=== PATIENT | female | born 1970 ===

== ENCOUNTER 2018-02-14 08:05 | Emergency (ER) | payer OTHER, SELFPAY ==
[2018-02-14 08:20] VITALS: RESP 19; O2SAT 98
[2018-02-14] MEDS ORDERED: Naproxen 500 MG TAB PO ONE (08:28)
--- NOTE | 2018-02-14 08:30 | ED PDOC ---
HPI: Influenza Time Seen by Provider: 02/14/18 08:23 Chief Complaint: Flu-like Symptoms Chief Complaint (Provider): Flu-like Symptoms History Per: Patient Exam Limitations: no limitations Onset/Duration Of Symptoms: Days (x 3) Additional complaint(s):: Christine is a 47 y/o female who presents to the ED complaining of cough, fever, body aches, and chills since Monday. She also complains of some shortness of breath, headache, and sore throat. Patient denies any other complaints at this time. She did not get the flu shot. PMD: Clinic Past Medical History Reviewed: Historical Data, Nursing Documentation, Vital Signs Vital Signs: Last Vital Signs Temp 101.2 F H 02/14/18 08:17 Pulse 84 02/14/18 08:17 Resp 19 02/14/18 08:17 BP 126/82 02/14/18 08:21 Pulse Ox 98 02/14/18 08:17 - Medical History PMH: Hypothyroidism - Surgical History Surgical History: No Surg Hx - Family History Family History: States: Unknown Family Hx - Immunization History Hx Tetanus Toxoid Vaccination: No Hx Influenza Vaccination: No Hx Pneumococcal Vaccination: No - Home Medications Home Medications: Ambulatory Orders Medication Instructions Recorded Aspirin 81 mg PO DAILY 04/08/15 Prednisone 60 mg PO DAILY #15 tab 04/08/15 Valacyclovir Hydrochloride 1 gm PO BID #14 tab 04/08/15 [Valtrex] oxyCODONE/Acetaminophen [Percocet 2 tab PO TID #30 tab 04/08/15 5/325 mg Tab] Cyclobenzaprine [Cyclobenzaprine 10 mg PO Q8 PRN #9 tab 07/20/16 HCl] Ibuprofen [Motrin] 600 mg PO TID PRN #30 tab 07/20/16 traMADol [Ultram] 50 mg PO Q8 PRN #12 tab 07/20/16 Naproxen [Naprosyn] 500 mg PO BID PRN #20 tablet 02/14/18 Promethazine DM [Phenergan DM 10 ml PO Q8H PRN #120 ml 02/14/18 Syrup] - Allergies Allergies/Adverse Reactions: Allergies Allergy/AdvReac Type Severity Reaction Status Date / Time No Known Allergies Allergy Unverified 04/08/15 09:35 Review of Systems ROS Statement: Except As Marked, All Systems Reviewed And Found Negative Constitutional: Positive for: Fever, Chills, Malaise ENT: Positive for: Throat Pain Respiratory: Positive for: Cough, Shortness of Breath Gastrointestinal: Negative for: Nausea, Vomiting, Abdominal Pain Genitourinary Female: Negative for: Dysuria Neurological: Positive for: Headache Physical Exam - Reviewed Nursing Documentation Reviewed: Yes Vital Signs Reviewed: Yes - Physical Exam Appears: Positive for: Uncomfortable Head Exam: Positive for: ATRAUMATIC, NORMAL INSPECTION, NORMOCEPHALIC Skin: Positive for: Normal Color, Warm, Dry ENT: Positive for: Normal ENT Inspection Neck: Positive for: Normal, Painless ROM, Supple Cardiovascular/Chest: Positive for: Regular Rate, Rhythm. Negative for: Murmur Respiratory: Positive for: Normal Breath Sounds. Negative for: Respiratory Distress Gastrointestinal/Abdominal: Positive for: Normal Exam, Soft. Negative for: Tenderness Lymphatic: Positive for: Other (no palpable lymph nodes but tender to palpation) Neurologic/Psych: Positive for: Alert, Oriented Medical Decision Making Medical Decision Making: Time: 8:28 Initial Impression: Flu-like illness Initial Plan: --Flu Swab --Naproxen Scribe Attestation: Documented by Samuel Cadena, acting as a scribe for Dr. Sofia Calle MD. Provider Scribe Attestation: All medical record entries made by the Scribe were at my direction and personally dictated by me. I have reviewed the chart and agree that the record accurately reflects my personal performance of the history, physical exam, medical decision making, and the department course for this patient. I have also personally directed, reviewed, and agree with the discharge instructions and disposition. - ECG O2 Sat by Pulse Oximetry: 98 (RA) Pulse Ox Interpretation: Normal Disposition - Clinical Impression Clinical Impression: Influenza-like symptoms - Patient ED Disposition Is Patient to be Admitted: No Doctor Will See Patient In The: Office Counseled Patient/Family Regarding: Diagnosis, Need For Followup, Rx Given - Disposition Referrals: at [facility] [Outside] Disposition: Routine/Home Disposition Time: 09:11 Condition: STABLE Prescriptions: Naproxen [Naprosyn] 500 mg PO BID PRN #20 tablet PRN Reason: Pain, Moderate (4-7) Promethazine DM [Phenergan DM Syrup] 10 ml PO Q8H PRN #120 ml PRN Reason: Cough Instructions: Viral Upper Respiratory Infection, Adult (DC) Forms: [employer] ([place]) [employer] (Congolese), [facility] ED School/Work Excuse Print Language: HAITIAN - POA Present On Arrival: None
[2018-02-14 09:20] VITALS: TEMP 100.4
[2018-02-14 09:28] VITALS: BP 128/76; PULSE 78
== END 2018-02-14 09:28 | disposition home or self-care (01) ==
LOC: H.ER 08:05
DX: J11.1 Influenza due to unidentified influenza virus with other respiratory manifestations (principal)

== ENCOUNTER 2018-02-25 19:34 | Emergency (ER) | payer OTHER ==
[2018-02-25 20:28] VITALS: RESP 18
[2018-02-25] MEDS ORDERED: Morphine 4 MG/ML VIAL IVP STA (21:11)
[2018-02-25] MEDS ORDERED: Tdap Vaccine 0.5 ml Vial (10-64 yrs) IM ONE ×2 (21:12→21:27)
--- NOTE | 2018-02-25 21:12 | ED PDOC ---
Lower Extremity Pain/Injury Time Seen by Provider: 02/25/18 20:47 Chief Complaint (Nursing): Lower Extremity Problem/Injury Chief Complaint (Provider): Lower Extremity Problem/Injury History Per: Patient History/Exam Limitations: no limitations Onset/Duration Of Symptoms: Days (x2) Current Symptoms Are (Timing): Still Present Additional Complaint(s): 47 y/o female with a history of diabetes and varicose veins presents to the ED complaining of left lower extremity pain that began 2 days ago. She is complaining of swelling and redness to the left medial knee. Patient denies any trauma or injury to the left leg, fever, numbness, weakness, SOB, chest pain. PMD:Dr. Yin Ramos MD Past Medical History Reviewed: Historical Data, Nursing Documentation, Vital Signs Vital Signs: Last Vital Signs Temp 97.8 F 02/25/18 20:21 Pulse 74 02/25/18 20:21 Resp 18 02/25/18 20:21 BP 117/80 02/25/18 20:21 Pulse Ox 98 02/25/18 20:21 - Medical History PMH: Diabetes, Hypothyroidism - Surgical History Surgical History: No Surg Hx - Family History Family History: States: Unknown Family Hx - Social History Current smoker - smoking cessation education provided: No Ex-Smoker (has not smoked in the last 12 months): No Alcohol: None Drugs: Denies - Immunization History Hx Tetanus Toxoid Vaccination: No Hx Influenza Vaccination: No Hx Pneumococcal Vaccination: No - Home Medications Home Medications: Ambulatory Orders Medication Instructions Recorded Aspirin 81 mg PO DAILY 04/08/15 Prednisone 60 mg PO DAILY #15 tab 04/08/15 Valacyclovir Hydrochloride 1 gm PO BID #14 tab 04/08/15 [Valtrex] oxyCODONE/Acetaminophen [Percocet 2 tab PO TID #30 tab 04/08/15 5/325 mg Tab] Cyclobenzaprine [Cyclobenzaprine 10 mg PO Q8 PRN #9 tab 07/20/16 HCl] Ibuprofen [Motrin] 600 mg PO TID PRN #30 tab 07/20/16 traMADol [Ultram] 50 mg PO Q8 PRN #12 tab 07/20/16 Naproxen [Naprosyn] 500 mg PO BID PRN #20 tablet 02/14/18 Promethazine DM [Phenergan DM 10 ml PO Q8H PRN #120 ml 03/21/18 Syrup] Cephalexin [Keflex] 500 mg PO Q6 #28 capsule 02/26/18 Naproxen 500 mg PO BID PRN #20 tablet 02/26/18 - Allergies Allergies/Adverse Reactions: Allergies Allergy/AdvReac Type Severity Reaction Status Date / Time No Known Allergies Allergy Verified 02/25/18 20:21 Review of Systems ROS Statement: Except As Marked, All Systems Reviewed And Found Negative Constitutional: Negative for: Fever Cardiovascular: Negative for: Chest Pain Respiratory: Negative for: Shortness of Breath Musculoskeletal: Positive for: Leg Pain (left leg and swelling) Skin: Positive for: Other (redness to left medial knee and vericose veins) Neurological: Negative for: Weakness, Numbness Physical Exam - Reviewed Nursing Documentation Reviewed: Yes Vital Signs Reviewed: Yes - Physical Exam Comments: GENERAL APPEARANCE: Patient is awake, alert, oriented x 3, in mild painful distress. SKIN: Warm, dry; (-) cyanosis. EYES: (-) conjunctival pallor. ENMT: Mucous membranes moist. NECK: (-) tenderness, (-) stiffness, (-) lymphadenopathy, (-) JVD. CHEST AND RESPIRATORY: (-) rash, (-) chest wall tenderness. Lungs: (-) rales , (-) rhonchi, (-) wheezes, (-) rub; breath sounds equal bilaterally. HEART AND CARDIOVASCULAR: (-) irregularity; (-) murmur, (-) gallop, (-) rub. ABDOMEN AND GI: Soft; (-) distention, (-) tenderness, (-) palpable pulsatile mass. EXTREMITIES: (+) 7 x5 cm area of erythema, edema and tenderness to the medial aspect of the L knee with noted tender varicose veins, (-) deformity; (-) calf tenderness, (+) distal pulses (+) multiple varicose veins to the L leg, (+) cap refill < 2 sec. NEURO AND PSYCH: Mental status as above. Cranial nerves grossly intact; strength symmetric. - Laboratory Results Result Diagrams: 02/25/18 21:25 02/25/18 21:25 - ECG O2 Sat by Pulse Oximetry: 98 (RA) Pulse Ox Interpretation: Normal Medical Decision Making Medical Decision Making: Time: 20:21 Impression: Superficial phlebitis, consider cellulitis, rule out DVT. Initial Plan: * Morphine 4 mg IVP * Zofran 4 mg PO * Tetanus 0.5 ml IM * Ultrasound of the LE Labs reviewed and are wnl. US duplex LLE : FINDINGS: Deep veins: Unremarkable. No DVT in the visualized common femoral, femoral, proximal deep femoral or popliteal veins. The veins demonstrate normal color flow, are normally compressible, with normal phasic flow and/or augmentation response. Superficial veins: In the area of clinical concern in the medial knee there are thrombosed superficial varicose veins. There is no flow through these veins. Soft tissues: No acute findings. No popliteal cyst. IMPRESSION: There is no DVT. There are thrombosed superficial varicose veins in the medial knee at the area of clinical concern. Dictated and Authenticated by: Prisca Valadez MD 02/25/2018 11:25 PM Eastern Time ([place] & [place]) On re-evaluation, patient reports improvement of pain, denies any fever, chills , numbness. On exam, patient remains AAOx3, in no acute distress. Exam of the LLE is unchanged from initial exam. Ancef 1 g IV ordered. Diagnostic results d/w the patient in great detail. Diagnosis of superficial phlebitis d/w the patient. Based on history, exam and diagnostic results, plan will be for outpatient follow up. Patient instructed to follow-up with pmd at the clinic in 1-2 days without fail. Advised to take medication as prescribed. Advised to elevate the L leg, apply warm compresses and otc aspirin for pain. Return to the emergency room at any time for any new or worsening symptoms. Patient states she fully agrees with and understands discharge instructions. States that she agrees with the plan and disposition. Verbalized and repeated discharge instructions and plan. I have given the patient opportunity to ask any additional questions. Scribe Attestation: Documented by Emily Hull acting as a scribe for Preethi Acevedo PA-C. Scribpawan Attestation: All medical record entries made by the Scribe were at my direction and personally dictated by me. I have reviewed the chart and agree that the record accurately reflects my personal performance of the history, physical exam, medical decision making, and the department course for this patient. I have also personally directed, reviewed, and agree with the discharge instructions and disposition. Disposition - Clinical Impression Clinical Impression: Superficial phlebitis - Patient ED Disposition Is Patient to be Admitted: No Counseled Patient/Family Regarding: Studies Performed, Diagnosis, Need For Followup, Rx Given - Disposition Disposition: Routine/Home Disposition Time: 00:45 Condition: STABLE Additional Instructions: Thank you for letting us take care of you today. You were treated for superficial phlebitis. The emergency medical care you received today was directed at your acute symptoms. If you were prescribed any medication, please fill it and take as directed. It may take several days for your symptoms to resolve. Return to the Emergency Department if your symptoms worsen, do not improve, or if you have any other problems. Please contact your doctor in 2 days for re-evaluation and follow up. Bring any paperwork you were given at discharge with you along with any medications you are taking to your follow up visit. Our treatment cannot replace ongoing medical care by a primary care provider (PCP) outside of the emergency department. Thank you for allowing the [facility] team to be part of your care today. Prescriptions: Cephalexin [Keflex] 500 mg PO Q6 #28 capsule Naproxen 500 mg PO BID PRN #20 tablet PRN Reason: Pain, Moderate (4-7) Instructions: Superficial Phlebitis Forms: [employer] (Citizen Of [place]), [facility] ED School/Work Excuse Print Language: ERITREAN - PA / PROGRAM TECHNICIAN / Resident Statement / has reviewed & agrees with the documentation as recorded.
[2018-02-25] MEDS ORDERED: Morphine 4 MG/ML VIAL ONE (21:28)
[2018-02-25 21:34] LABS: BASO # 0.1 K/uL (0.0-0.2); EOS # 0.3 K/uL (0.0-0.7); HEMOGLOBIN 12.9 g/dL (12.0-16.0); LYMPH # 2.8 K/uL (1.0-4.3); LYMPH % 37.5 % (20.0-40.0); MEAN CORPUSCULAR HEMOGLOBIN 27.8 pg (27.0-31.0); MEAN CORPUSCULAR HGB CONC 33.6 g/dL (33.0-37.0); MEAN PLATELET VOLUME 8.6 fl (7.2-11.7); MONO % 13.7 % (0.0-10.0); NEUT # 3.3 K/uL (1.8-7.0); NEUT % 43.8 % (50.0-75.0); NRBC % 0.1 % (0.0-0.0); RBC 4.63 Mil/uL (3.80-5.20); RED CELL DISTRIBUTION WIDTH 14.7 % (11.5-14.5); WHITE BLOOD COUNT 7.5 K/uL (4.8-10.8)
[2018-02-25 21:45] LABS: MEAN CELL VOLUME 82.6 fl (81.0-99.0)
[2018-02-25 21:46] LABS: ALBUMIN 4.1 g/dL (3.5-5.0); ALT/SGPT 48 U/L (9-52); AST/SGOT 43 U/L (14-36); BLOOD UREA NITROGEN 20 mg/dl (7-17); CALCIUM 8.7 mg/dL (8.4-10.2); GFR AFRICAN-AMERICAN > 60; GFR NON-AFRICAN AMERICAN > 60; INR 1.1 (0.9-1.2); PROTHROMBIN TIME 11.7 Seconds (9.8-13.1)
[2018-02-26] MEDS ORDERED: ceFAZolin 1 GM in Sodium Chloride 0.9% 100 ML IVPB STA (00:15)
[2018-02-26 02:23] VITALS: BP 106/61; PULSE 67; TEMP 97.7
[2018-02-26 03:57] VITALS: O2SAT 98
--- NOTE | 2018-02-26 11:57 | US ---
HISTORY: redness, pain to the medial L knee . PRIORS: None. FINDINGS: 2-D, color and duplex Doppler analysis of the lower extremity venous circulation using routine protocol from the femoral veins through the popliteal veins. Venous compressibility: Normal. Flow and augmentation patterns: Normal. Visualized veins upper third of calf: Normal. Moody cyst: None. Incidental finding(s): Noncompressible superficial venous varicosities area of interest. IMPRESSION: No sonographic or Doppler evidence for DVT in left lower extremity. Evidence of large, noncompressible superficial venous thrombosis area of interest, venous varicosities. Concordant results (preliminary interpretation) provided by [facility]. Procedure Completed: 23:09 Preliminary ([facility]) Report: Dictated and Authenticated: 19:25 Final Interpretation: 11:55 February 26, 2018.
== END 2018-02-26 02:28 | disposition home or self-care (01) ==
LOC: H.ER 19:34
DX: I80.01 Phlebitis and thrombophlebitis of superficial vessels of right lower extremity (principal); E03.9 Hypothyroidism, unspecified; E11.9 Type 2 diabetes mellitus without complications; Z79.82 Long term (current) use of aspirin; Z87.891 Personal history of nicotine dependence
CPT/HCPCS: 80053; 85025; 85610; 85730; 90471; 90715; 93971; 96365; 96374; 99285; J0690; J2270

== ENCOUNTER 2018-12-14 08:39 | Emergency (ER) | payer SELFPAY ==
[2018-12-14 08:55] VITALS: BMI 43.7
[2018-12-14] MEDS ORDERED: Sodium Chloride 0.9% 1,000 ML IV STA (09:29)
--- NOTE | 2018-12-14 10:07 | ED PDOC ---
History of Present Illness History of Present Illness: 48 year old female with a history of diabetes and obesity presents to the ED with body aches, fever, and cough for three days. Patient reports two flu- positive grandchildren at home. She did not receive the influenza vaccine this year. Patient does not offer other medical complaints. PMD: Dr. Yin Ramos HPI: Influenza Time Seen by Provider: 12/14/18 09:11 Chief Complaint: Flu-like Symptoms Chief Complaint (Provider): Flu-like Symptoms History Per: Patient, Senior Benefits Specialist (lindy arellano) Exam Limitations: no limitations Onset/Duration Of Symptoms: Days (x 3) Symptoms include: fever, bodyaches, cough. denies: rash Sick Contacts (Context): Family Member(s) (two grandchildren flu +) Risk factors for flu complications: Yes: obesity (BMI > 40) Past Medical History Reviewed: Historical Data, Nursing Documentation, Vital Signs Vital Signs: Last Vital Signs Temp 101.1 F H 12/14/18 08:54 Pulse 91 H 12/14/18 08:54 Resp 20 12/14/18 08:54 BP 115/72 12/14/18 08:54 Pulse Ox 97 12/14/18 08:54 - Medical History PMH: Diabetes, Hypothyroidism Denies: Chronic Kidney Disease - Surgical History Surgical History: No Surg Hx - Family History Family History: States: Unknown Family Hx - Immunization History Hx Tetanus Toxoid Vaccination: No Hx Influenza Vaccination: No Hx Pneumococcal Vaccination: No - Home Medications Home Medications: Ambulatory Orders Medication Instructions Recorded Aspirin 81 mg PO DAILY 04/08/15 Prednisone 60 mg PO DAILY #15 tab 04/08/15 Valacyclovir Hydrochloride 1 gm PO BID #14 tab 04/08/15 [Valtrex] oxyCODONE/Acetaminophen [Percocet 2 tab PO TID #30 tab 04/08/15 5/325 mg Tab] Cyclobenzaprine [Cyclobenzaprine 10 mg PO Q8 PRN #9 tab 07/20/16 HCl] Ibuprofen [Motrin] 600 mg PO TID PRN #30 tab 07/20/16 traMADol [Ultram] 50 mg PO Q8 PRN #12 tab 07/20/16 Naproxen [Naprosyn] 500 mg PO BID PRN #20 tablet 02/14/18 Promethazine DM [Phenergan DM 10 ml PO Q8H PRN #120 ml 02/14/18 Syrup] Cephalexin [Keflex] 500 mg PO Q6 #28 capsule 02/26/18 Naproxen 500 mg PO BID PRN #20 tablet 02/26/18 Ibuprofen [Motrin Tab] 600 mg PO Q6 PRN #15 tab 12/14/18 Oseltamivir Cap [Tamiflu] 75 mg PO BID #10 cap 12/14/18 guaiFENesin [guaifENESIN] 10 ml PO Q4 PRN #250 ml 12/14/18 - Allergies Allergies/Adverse Reactions: Allergies Allergy/AdvReac Type Severity Reaction Status Date / Time No Known Allergies Allergy Verified 02/25/18 20:21 Review of Systems ROS Statement: Except As Marked, All Systems Reviewed And Found Negative Constitutional: Positive for: Fever, Other (generalized body aches). Negative for: Chills Respiratory: Positive for: Cough Gastrointestinal: Negative for: Nausea, Vomiting Skin: Negative for: Rash Physical Exam - Reviewed Nursing Documentation Reviewed: Yes Vital Signs Reviewed: Yes - Physical Exam Appears: Positive for: Uncomfortable Head Exam: Positive for: ATRAUMATIC, NORMAL INSPECTION, NORMOCEPHALIC Skin: Positive for: Normal Color, Warm, Dry. Negative for: Rash Eye Exam: Positive for: EOMI, Normal appearance, PERRL ENT: Positive for: Normal ENT Inspection Neck: Positive for: Normal, Painless ROM, Supple ((-) nuchal rigidity) Cardiovascular/Chest: Positive for: Regular Rate, Rhythm. Negative for: Murmur Respiratory: Positive for: Normal Breath Sounds, Other ((+) cough on exam) Gastrointestinal/Abdominal: Positive for: Normal Exam, Soft. Negative for: Tenderness Extremity: Positive for: Normal ROM (x 4). Negative for: Deformity Neurologic/Psych: Positive for: Alert, Oriented (x 3). Negative for: Motor/Sensory Deficits Medical Decision Making Medical Decision Makin:27 MDM: Will treat patient empirically for the flu with fluids, CXR and basic labs Orders: --EKG --BNP --CMP --CBC --Total CK --CBC --CXR --Motrin 600 mg PO --NS IV 1,000 mls --Tamiflu 75 mg PO --UA labs reviewed no clinically significant findings empiric tamiflu initiated given risk factors CXR neg EKG sinus rhythm without ST changes on my read Improved over ED stay, ambulatory. DC to followup clinic/PMDm supportive care and tamiflu Rxs provided Scribe Attestation: Documented by Blanca Anderson acting as a scribe for Mike Hamilton III, DO Provider Scribe Attestation: All medical record entries made by the Scribe were at my direction and personally dictated by me. I have reviewed the chart and agree that the record accurately reflects my personal performance of the history, physical exam, m edical decision making, and the department course for this patient. I have also personally directed, reviewed, and agree with the discharge instructions and disposition. - Laboratory Results Result Diagrams: 12/14/18 09:52 12/14/18 09:52 - ECG O2 Sat by Pulse Oximetry: 97 Disposition - Clinical Impression Clinical Impression: Influenza - Patient ED Disposition Is Patient to be Admitted: No Counseled Patient/Family Regarding: Studies Performed, Diagnosis, Need For Followup, Rx Given - Disposition Referrals: [facility] [Outside] Disposition: Routine/Home Disposition Time: 13:30 Condition: STABLE Additional Instructions: You are contagious for 7 days from onset of symptoms. Avoid close contact with others. Drink plenty of fluids. Take tamiflu 2x daily as directed. Return to ER for any worse or new symptoms. Prescriptions: guaiFENesin [guaifENESIN] 10 ml PO Q4 PRN #250 ml PRN Reason: Cough Ibuprofen [Motrin Tab] 600 mg PO Q6 PRN #15 tab PRN Reason: Pain, Moderate (4-7) Oseltamivir Cap [Tamiflu] 75 mg PO BID #10 cap Instructions: Flu, Adult (DC) Forms: [employer] (French) Print Language: CONGOLESE
[2018-12-14 10:13] LABS: BASO % 0.5 % (0.0-2.0); EOS % 0.1 % (0.0-4.0); HEMOGLOBIN 13.8 g/dL (12.0-16.0); LYMPH % 18.9 % (20.0-40.0); MEAN CELL VOLUME 81.3 fl (81.0-99.0); MEAN CORPUSCULAR HEMOGLOBIN 27.1 pg (27.0-31.0); MEAN CORPUSCULAR HGB CONC 33.3 g/dL (33.0-37.0); MEAN PLATELET VOLUME 8.9 fl (7.2-11.7); MONO # 0.6 K/uL (0.0-0.8); MONO % 11.5 % (0.0-10.0); NEUT # 3.8 K/uL (1.8-7.0); RBC 5.1 Mil/uL (3.80-5.20); RED CELL DISTRIBUTION WIDTH 15.5 % (11.5-14.5); WHITE BLOOD COUNT 5.5 K/uL (4.8-10.8)
[2018-12-14 10:41] LABS: SQUAMOUS EPITHIAL 1 /hpf (0-5); URINE BACTERIA RARE (<OCC); URINE BILIRUBIN NEGATIVE (NEGATIVE); URINE BLOOD NEGATIVE (NEGATIVE); URINE CLARITY SLIGHTY-CLOUDY (Clear); URINE COLOR YELLOW (YELLOW); URINE GLUCOSE (UA) NEG (NEGATIVE); URINE LEUKOCYTE ESTERASE NEG Leu/uL (Negative); URINE PROTEIN 100 mg/dL (NEGATIVE)
[2018-12-14 10:45] LABS: BLOOD UREA NITROGEN 13 mg/dl (7-17); CALCIUM 8.2 mg/dL (8.4-10.2); GFR NON-AFRICAN AMERICAN > 60
[2018-12-14 10:46] LABS: ALB/GLOB RATIO 1.1 (1.0-2.1); B-TYPE NATRIURETIC PEPTIDE 196 pg/ml (0-450)
[2018-12-14 10:47] LABS: ALT/SGPT 53 U/L (9-52); AST/SGOT 51 U/L (14-36)
--- NOTE | 2018-12-14 11:54 | RAD ---
Date of service: 12/14/2018 HISTORY: flu, SOB COMPARISON: No prior. TECHNIQUE: Chest PA and lateral FINDINGS: LUNGS: No active pulmonary disease. PLEURA: No significant pleural effusion identified. No pneumothorax apparent. CARDIOVASCULAR: No aortic atherosclerotic calcification present. Normal cardiac size. No pulmonary vascular congestion. OSSEOUS STRUCTURES: No significant abnormalities. VISUALIZED UPPER ABDOMEN: Normal. OTHER FINDINGS: None. IMPRESSION: No active disease.
[2018-12-14 14:39] VITALS: BP 115/59; PULSE 81; RESP 18; TEMP 98.4; O2SAT 98
--- NOTE | 2018-12-14 20:30 | CARD ---
APPROVED REPORT Date of service: 12/14/2018 EKG Measurement Heart [id number] <Conclusion> Normal sinus rhythm Normal ECG
== END 2018-12-14 14:28 | disposition home or self-care (01) ==
LOC: H.ER 08:39
DX: J11.1 Influenza due to unidentified influenza virus with other respiratory manifestations (principal); E03.9 Hypothyroidism, unspecified; E11.9 Type 2 diabetes mellitus without complications; E66.9 Obesity, unspecified; Z79.82 Long term (current) use of aspirin
CPT/HCPCS: 71046; 80053; 81003; 81025; 82550; 83880; 84484; 85025; 93005; 99285; J7030

== ENCOUNTER 2019-01-29 19:35 | Emergency (ER) | payer SELFPAY ==
[2019-01-29 19:35] VITALS: BMI 43.7
[2019-01-29 19:47] VITALS: BP 125/88; PULSE 92; RESP 16; TEMP 98.5; O2SAT 97
== END 2019-01-29 22:00 | disposition left against medical advice (07) ==
LOC: H.ER 19:35
DX: Z02.89 Encounter for other administrative examinations (principal)